=== PATIENT | female | born 1995 | race African-American/Black ===

== ENCOUNTER 2018-11-07 22:53 | Emergency (ER) | payer OTHER, SELFPAY ==
[2018-11-07 22:55] VITALS: BP 129/85; PULSE 110; RESP 18; TEMP 36.8; O2SAT 99; BMI 34.2
[2018-11-07 23:49] LABS: Mucous, Urine 0 SEEN /hpf (<or=2+); Red Blood Cells-Urine 0 SEEN /hpf (0-5)
[2018-11-07 23:54] LABS: Color, Urine Yellow (Yellow); Glucose, Dipstick Normal (Normal); Ketone-Dipstick Negative (Negative); Leukocyte Esterase-Dipstick 25 /ul (Negative); Nitrite-Dipstick Negative (Negative); Occult Blood-Urine Negative /ul (Negative); Protein-Dipstick 15 mg/dl (Negative); Urine Bilirubin Dipstick Negative (Negative); Urine Clarity Sl. Cloudy (Clear); Urine Urobilinogen Normal (Normal); Urine pH 6.5 (5.0 - 8.0)
[2018-11-08] LABS: Bacteria RARE /hpf (None Seen); Internal QC Validated? YES +Cl - CLEAR BKGD; Pregnancy, Urine Negative Negative; Squamous Epithelial Cells - UA 5-10 SEEN /hpf (5-10); White Blood Cells 0-5 SEEN /hpf (0-5)
--- NOTE | 2018-11-08 00:08 | ED.DCSUM_ITS ---
- ER Visit Summary Date of Service: 11/08/18 Chief Complaint: Pelvic cramping History of Present Illness: The patient is a 22 F who presents with pelvic cramping. She has an IUD in place since last year. She was supposed to have a follow-up appointment in August but missed this. She has had intermittent cramping for the past 3 weeks. No specific change in symptoms that prompted her visit here today no acute worsening. She denies urinary symptoms such as dysuria frequency urgency. No fevers vomiting diarrhea. No vaginal bleeding. No vaginal discharge. Physical Examination: Heart rate 110 vitals otherwise normal Moist mucous membranes Heart regular rhythm tachycardia Lungs are clear Abdomen soft nontender nondistended Test Results: [id number] bedside transabdominal pelvic ultrasound shows IUD to be in place. Urinalysis contaminated, not consistent with cystitis. is negative. Emergency Department Course and Treatment: Patient's main concern was that her IUD may become dislodged. Her IUD is in place on [id number] ultrasound. 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 Patient understands to return for new or worsening symptoms. She was discharged. Treatment Plan: [] Disposition: Discharge Impression: Pelvic pain/cramping This note was generated with [employer] dictation software. It may contain incorrect words, spelling, and punctuation that were not noted in review of the chart prior to signing ED Disposition - Plan for ED Patient: Referrals: Care Physician,No Primary [Primary Care Provider] -
--- NOTE | 2018-11-08 00:08 | ED.DEP ---
ED Disposition - Plan for ED Patient: Instructions: ED Pelvic Pain [facility] Referrals: Care Physician,No Primary [Primary Care Provider] - Ela Jaeger MD [STAFF PHYSICIAN] -
== END 2018-11-08 00:16 | disposition home or self-care (01) ==
PROVIDERS: Emergency Provider Emergency Medicine
DX: R10.2 Pelvic and perineal pain (principal); Z72.0 Tobacco use
CPT/HCPCS: 81001; 81025; 99282